=== PATIENT | male | born 1975 | race Caucasian/White ===

== ENCOUNTER 2021-10-18 17:01 | Emergency (ER) | payer OTHER ==
[~2021-10-18] VITALS: Ht 177.8 cm; Wt 136.1 kg
--- NOTE | 2021-10-18 17:01 | NUR ---
WEI DELANEY, VIA GURNEY TO BED 09.
[2021-10-18 17:05] VITALS: BP 121/77
--- NOTE | 2021-10-18 17:15 | NUR ---
46 y/o male biba from [facility]. Pt presented to Urgent Care with c/o chest pain, was given ASA 325mg and Nitroglycerin 0.4mg with relief. Per EMS, [address] elev, v5 at urgent care. Repeat by EMS, results unremarkable. On scene SPO2 88% on RA, placed on 5L via NC. Upon arrival pt is a/o x4, denies cp or sob at this time. Denies fever, chills, nvd. States CP came on suddenly at home today rating 7/10 "chest tightness" that radiated to left shoulder. Denies having chest pain in the past. Skin is cool and dry. Lung sounds clear throughout, respirations even and unlabored. Satting at 93% on 5L. States he has history of HTN although non-compliant with medication. Reports using Marijuana this morning. Placed on supervisor assembly department, bilateral side rails up, bed in low, call light in reach. PMH: HTN, sleep apnea NKA
--- NOTE | 2021-10-18 17:26 | NUR ---
xray at bedside
--- NOTE | 2021-10-18 17:29 | NUR ---
LAB AT BEDSIDE
[2021-10-18 17:44] LABS: BASOPHILS % (AUTO) 0.5 % (0.0-2.0); EOSINOPHILS # (AUTO) 0.1 K/uL (0-0.4); EOSINOPHILS % (AUTO) 0.9 % (0.0-4.0); HEMATOCRIT 44.8 % (36-52); HEMOGLOBIN 14.8 g/dL (12.0-18.0); LYMPHOCYTES # (AUTO) 1.9 K/uL (2.0-11.5); MEAN CORPUSCULAR HEMOGLOBIN 31 pg (27-31); MEAN CORPUSCULAR HGB CONC 33 g/dL (33-37); MEAN CORPUSCULAR VOLUME 92.7 fL (80-94); MONOCYTES # (AUTO) 0.6 K/uL (0.8-1.0); NEUTROPHILS # (AUTO) 5.4 K/uL (1.8-7.7); NEUTROPHILS % (AUTO) 67.6 % (42.2-75.2); PLATELET COUNT (AUTO) 250 K/uL (140-450); RED BLOOD CELL COUNT(AUTO) 4.84 MIL/uL (4.20-6.10); RED CELL DISTRIBUTION WIDTH 14.1 % (11.6-13.7)
[2021-10-18 18:00] LABS: ALBUMIN 3.9 g/dL (3.4-5.0); ANION GAP 15.7 (8-16); CARBON DIOXIDE 26.7 mmol/L (21-32); CREATININE 1.6 mg/dL (0.6-1.3); POTASSIUM 3.4 mmol/L (3.5-5.1); TOTAL BILIRUBIN 0.5 mg/dL (0.0-1.0)
[2021-10-18 18:05] LABS: MAGNESIUM 1.7 mg/dL (1.8-2.4)
--- NOTE | 2021-10-18 18:41 | NUR ---
lab at bedside
[2021-10-18] MEDS ORDERED: ASPIRIN 325 MG TAB PO ONE (19:00)
--- NOTE | 2021-10-18 19:20 | NUR ---
Pt report given to CISCO De Santiago. Transfer of care at this time.
[2021-10-18] MEDS ORDERED: POTASSIUM CHLORIDE 10 MEQ TABER PO ONE (20:20)
[2021-10-18] MEDS ORDERED: MAGNESIUM CHLORIDE 64 MG TABEC PO SCH (20:20)
--- NOTE | 2021-10-18 20:36 | NUR ---
Dr. Thompson examining patient.
--- NOTE | 2021-10-18 20:36 | NUR ---
DR DOHERTY TALKING WITH PT ABOUT RESULTS
--- NOTE | 2021-10-18 21:46 | NUR ---
pt reports 7/10 chest pain, non rad that began at this time. ermd sin stated to get a repeat ekg.
--- NOTE | 2021-10-18 21:52 | NUR ---
SPOKE WITH GENETIC ENGINEERRAFAEL ABOUT AMDIT/TRANSFER ORDERS
[2021-10-18] MEDS ORDERED: FAMOTIDINE 20 MG/2 ML VIAL IVP ONE (22:05)
[2021-10-18] MEDS ORDERED: MAG SULF 2000 MG/WATER PREMIX 50 ML IV ONE (22:35)
[2021-10-19] MEDS ORDERED: LISI2.5T14 PO (01:22)
--- NOTE | 2021-10-19 01:42 | NUR ---
Patient to be transferred to [facility]. Is being transferred due to HIGHER LEVEL OF CARE. Receiving facility has accepting physician and available space. ER physician has signed transfer form. Patient or responsible democrat has agreed to transfer and signed form. Patient belongings inventoried and will be sent with patient. Copy of nursing notes, lab reports, EKG, Physicians Orders and X-rays to be sent with patient. Report called to CISCO LACKEY at receiving facility. [facility] ambulance service has been called for transfer. ETA is 20.
--- NOTE | 2021-10-19 03:00 | NUR ---
[facility] TRANSPORT AT BEDSIDE
[2021-10-19 03:11] VITALS: BP 156/89
--- NOTE | 2021-10-19 03:15 | NUR ---
PT TAKEN BY [facility] TRANSPORT TO [facility]OM [id number]
== END 2021-10-19 03:11 | disposition short-term general hospital (02) ==
LOC: MED 17:01
DX: J96.91 Respiratory failure, unspecified with hypoxia (principal); Z20.822 Contact with and (suspected) exposure to COVID-19; E87.6 Hypokalemia; E83.42 Hypomagnesemia; I10 Essential (primary) hypertension; F12.90 Cannabis use, unspecified, uncomplicated
CPT/HCPCS: 36415; 36600; 71045; 80053; 83735; 83880; 84484; 85025; 85379; 87426; 93005; 94760; 96365; 96366; 96375; 99285; J3475; J3490

== ENCOUNTER 2022-08-04 11:51 | Emergency (ER) | payer OTHER ==
[~2022-08-04] VITALS: Ht 177.8 cm; Wt 139.7 kg
[~2022-08-04 11:51] MED LIST: LISI2.5T14 PO
[2022-08-04 11:55] VITALS: BP 161/105
--- NOTE | 2022-08-04 12:39 | NUR ---
X-Ray at bedside.
--- NOTE | 2022-08-04 13:02 | NUR ---
AT BEDSIDE ASSESSING PATIENT
[2022-08-04 13:52] LABS: BASOPHILS % (AUTO) 0.7 % (0.0-2.0); EOSINOPHILS # (AUTO) 0.1 K/uL (0-0.4); EOSINOPHILS % (AUTO) 1.4 % (0.0-4.0); HEMATOCRIT 42.5 % (36-52); HEMOGLOBIN 14.1 g/dL (12.0-18.0); LYMPHOCYTES # (AUTO) 2.4 K/uL (2.0-11.5); LYMPHOCYTES % (AUTO) 32.1 % (20.5-51.1); MEAN CORPUSCULAR HEMOGLOBIN 31 pg (27-31); MEAN CORPUSCULAR HGB CONC 33 g/dL (33-37); MEAN CORPUSCULAR VOLUME 93.6 fL (80-94); MONOCYTES # (AUTO) 0.7 K/uL (0.8-1.0); MONOCYTES % (AUTO) 9.7 % (1.7-9.3); NEUTROPHILS # (AUTO) 4.2 K/uL (1.8-7.7); NEUTROPHILS % (AUTO) 56.1 % (42.2-75.2); PLATELET COUNT (AUTO) 250 K/uL (140-450); RED BLOOD CELL COUNT(AUTO) 4.54 MIL/uL (4.20-6.10); RED CELL DISTRIBUTION WIDTH 14.2 % (11.6-13.7); WHITE BLOOD COUNT (AUTO) 7.5 K/uL (4.8-10.8)
[2022-08-04 14:10] LABS: ALBUMIN 3.5 g/dL (3.4-5.0); CARBON DIOXIDE 29.8 mmol/L (21-32); CREATININE 1.1 mg/dL (0.6-1.3); POTASSIUM 3.8 mmol/L (3.5-5.1); TOTAL BILIRUBIN 0.3 mg/dL (0.0-1.0)
--- NOTE | 2022-08-04 15:43 | NUR ---
Blood for labwork drawn from LAB. Patient tolerated WELL.
[2022-08-04] MEDS ORDERED: AMLO5TAB PO (16:14)
[2022-08-04] MEDS ORDERED: ATOR10TA PO (16:14)
[2022-08-04 17:08] VITALS: BP 166/103
--- NOTE | 2022-08-04 17:57 | NUR ---
Patient discharged with v/s stable. Written and verbal after care instructions given and explained. Patient alert, oriented and verbalized understanding of instructions. Ambulatory with steady gait. All questions addressed prior to discharge. ID band removed. Patient advised to follow up with PMD. Rx of NORVASC, LIPITOR given. Patient educated on indication of medication including possible reaction and side effects. Opportunity to ask questions provided and answered.
== END 2022-08-04 17:08 | disposition home or self-care (01) ==
LOC: MED 11:51
DX: R14.0 Abdominal distension (gaseous) (principal); I10 Essential (primary) hypertension; Z91.148 Patient's other noncompliance with medication regimen for other reason; Z79.899 Other long term (current) drug therapy
CPT/HCPCS: 36415; 71045; 80053; 83880; 84484; 85025; 93005; 99285; Q0092

== ENCOUNTER 2023-04-29 17:45 | Emergency (ER) | payer OTHER ==
[~2023-04-29] VITALS: Ht 180.3 cm; Wt 137.9 kg
[~2023-04-29 17:45] MED LIST changes: +AMLO5TAB PO; +ATOR10TA PO
[2023-04-29 18:02] VITALS: BP 150/97; PULSE 80; RESP 18; TEMP 98; O2SAT 97
[2023-04-29 19:04] LABS: FLU A ANTIGEN negative (NEGATIVE); FLU B ANTIGEN NEGATIVE (NEGATIVE)
[2023-04-29] MEDS: ACETAMINOPHEN EXTRA STRENGTH 500 MG TAB PO ONE (19:17)
[2023-04-29] MEDS ORDERED: BENZ200C4 PO (20:17)
[2023-04-29] MEDS ORDERED: ACET-10509 PO (20:17)
[2023-04-29] MEDS ORDERED: IBUP-1842 PO (20:17)
== END 2023-04-29 20:28 | disposition home or self-care (01) ==
LOC: MED 17:45
DX: J06.9 Acute upper respiratory infection, unspecified (principal); Z20.822 Contact with and (suspected) exposure to COVID-19; I10 Essential (primary) hypertension; Z79.899 Other long term (current) drug therapy
CPT/HCPCS: 71046; 87081; 99284

== ENCOUNTER 2023-09-22 16:55 | Emergency (ER) | payer OTHER ==
[~2023-09-22 16:55] MED LIST changes: +ACET-10509 PO; +BENZ200C4 PO; +IBUP-1842 PO
== END 2023-09-22 17:36 | disposition left against medical advice (07) ==
LOC: MED 16:55
DX: Z02.89 Encounter for other administrative examinations (principal); Z53.21 Procedure and treatment not carried out due to patient leaving prior to being seen by health care provider